=== PATIENT | female | born 1995 | race African-American/Black ===

== ENCOUNTER 2025-09-06 17:26 | Emergency (ER) | payer MEDICAID, OTHER ==
[~2025-09-06] VITALS: Ht 172.7 cm; Wt 102.0 kg
[2025-09-06 17:29] VITALS: BP 114/62; PULSE 76; RESP 16; TEMP 98.4; O2SAT 97
[2025-09-06] MEDS ORDERED: FAMOTIDINE 20MG TABLET PO ONE (18:15)
[2025-09-06] MEDS ORDERED: ONDANSETRON 4MG ODT PO ONE (18:15)
[2025-09-06] MEDS ORDERED: VISCOUS LIDOCAINE 2% 15 ML UDC MM ONE (18:15)
[2025-09-06] MEDS ORDERED: MAGNESIUM/ALUMINUM HYDROXIDE/SIMETHICONE 30ML UDC PO ONE (18:15)
== END 2025-09-06 19:00 | disposition left against medical advice (07) ==
LOC: ER 17:26
DX: R10.9 Unspecified abdominal pain (principal)
CPT/HCPCS: 99283